=== PATIENT | female | born 1945 | race Two or more races ===

== ENCOUNTER 2018-02-10 08:39 | Outpatient (CLI) | payer OTHER ==
[~2018-02-10 08:39] MED LIST: SYNTHROID50 MCG
== END 2018-02-10 08:44 | disposition home or self-care (01) ==
LOC: SONOGRAMA 08:39 → MAMO-SONO 08:45
DX: R10.11 Right upper quadrant pain (principal)

== ENCOUNTER 2018-09-27 17:11 | Outpatient (CLI) | payer OTHER | END 2018-09-27 17:22 | disposition home or self-care (01) | LOC: RAD 17:11 | DX: J45.998 Other asthma (principal) ==

== ENCOUNTER → 2018-11-26 | Emergency (ER) | payer OTHER ==
[~2018-11-26] VITALS: Ht 152.4 cm; Wt 53.1 kg
== END | disposition left against medical advice (07) ==
LOC: ER 05:21
DX: Z53.20 Procedure and treatment not carried out because of patient's decision for unspecified reasons (principal)

== ENCOUNTER 2019-09-08 09:09 | Emergency (ER) | payer OTHER ==
[~2019-09-08] VITALS: Ht 152.4 cm; Wt 53.1 kg
== END 2019-09-08 13:24 | disposition home or self-care (01) ==
LOC: ER
DX: F06.4 Anxiety disorder due to known physiological condition (principal)

== ENCOUNTER → 2019-10-06 | Emergency (ER) | payer OTHER ==
[~2019-10-06] VITALS: Ht 152.4 cm; Wt 53.1 kg
== END | disposition left against medical advice (07) ==
LOC: ER 06:29
DX: Z53.21 Procedure and treatment not carried out due to patient leaving prior to being seen by health care provider (principal)

== ENCOUNTER 2019-10-22 09:07 | Emergency (ER) | payer OTHER ==
[~2019-10-22] VITALS: Ht 149.9 cm; Wt 52.6 kg
== END 2019-10-22 14:08 | disposition home or self-care (01) ==
LOC: ER 09:07
DX: R42 Dizziness and giddiness (principal)

== ENCOUNTER 2019-10-29 11:19 | Emergency (ER) | payer OTHER ==
[~2019-10-29] VITALS: Ht 149.9 cm; Wt 53.1 kg
== END 2019-10-29 15:44 | disposition home or self-care (01) ==
LOC: ER 11:19
DX: S40.022A Contusion of left upper arm, initial encounter (principal); R42 Dizziness and giddiness; Z03.818 Encounter for observation for suspected exposure to other biological agents ruled out; W01.198A Fall on same level from slipping, tripping and stumbling with subsequent striking against other object, initial encounter; Y93.K1 Activity, walking an animal; Y92.010 Kitchen of single-family (private) house as the place of occurrence of the external cause; Y99.8 Other external cause status

== ENCOUNTER 2019-10-30 09:46 | Outpatient (CLI) | payer OTHER | END 2019-10-30 10:20 | disposition home or self-care (01) | LOC: OFIC 805 09:46 | PROVIDERS: ATTEND Otolaryngology Otology & Neurotology | DX: H92.03 Otalgia, bilateral (principal); M26.603 Bilateral temporomandibular joint disorder, unspecified ==

== ENCOUNTER 2019-11-16 09:40 | Emergency (ER) | payer OTHER ==
[~2019-11-16] VITALS: Ht 152.4 cm; Wt 52.6 kg
[2019-11-16] MEDS ORDERED: CIPRO500 MG PO (12:00)
[2019-11-16] MEDS ORDERED: NASAL MIST126 ML NASAL (12:00)
[2019-11-16] MEDS ORDERED: DRAMAMINE25 MG PO (12:00)
== END 2019-11-16 12:06 | disposition home or self-care (01) ==
LOC: ER 09:40
DX: H92.01 Otalgia, right ear (principal); R42 Dizziness and giddiness

== ENCOUNTER 2019-11-23 09:15 | Emergency (ER) | payer OTHER ==
[~2019-11-23] VITALS: Ht 144.8 cm; Wt 52.6 kg
[~2019-11-23 09:15] MED LIST changes: +CIPRO500 MG PO; +DRAMAMINE25 MG PO; +NASAL MIST126 ML NASAL
== END 2019-11-23 10:37 | disposition home or self-care (01) ==
LOC: ER 09:15
DX: H92.01 Otalgia, right ear (principal)

== ENCOUNTER 2019-12-03 08:45 | Outpatient (CLI) | payer OTHER | END 2019-12-03 08:53 | disposition home or self-care (01) | LOC: TOM 08:45 | PROVIDERS: ATTEND Specialist | DX: G11.1 Early-onset cerebellar ataxia (principal); I63.442 Cerebral infarction due to embolism of left cerebellar artery ==

== ENCOUNTER 2019-12-03 13:47 | Outpatient (CLI) | payer OTHER | END 2019-12-03 16:32 | disposition home or self-care (01) | LOC: OFIC 805 13:47 | PROVIDERS: ATTEND Otolaryngology | DX: M26.69 Other specified disorders of temporomandibular joint (principal); H92.01 Otalgia, right ear ==

== ENCOUNTER 2019-12-10 12:41 | Emergency (ER) | payer OTHER ==
[~2019-12-10] VITALS: Ht 152.4 cm; Wt 53.1 kg
[2019-12-10] MEDS ORDERED: CLONAZEPAM0.5 MG PO (13:26)
[2019-12-10] MEDS ORDERED: VISTARIL25 MG PO (15:08)
== END 2019-12-10 15:27 | disposition home or self-care (01) ==
LOC: ER 12:41
DX: R20.0 Anesthesia of skin (principal); G25.2 Other specified forms of tremor

== ENCOUNTER 2019-12-21 10:19 | Emergency (ER) | payer OTHER ==
[~2019-12-21] VITALS: Ht 152.4 cm; Wt 53.1 kg
[~2019-12-21 10:19] MED LIST changes: +CLONAZEPAM0.5 MG PO; +VISTARIL25 MG PO
[2019-12-21] MEDS ORDERED: NEO-POLYMYXIN-H10 M2 (10:27)
== END 2019-12-21 11:40 | disposition home or self-care (01) ==
LOC: ER 10:19
DX: H92.01 Otalgia, right ear (principal); H66.91 Otitis media, unspecified, right ear

== ENCOUNTER 2019-12-24 11:12 | Outpatient (CLI) | payer OTHER ==
[~2019-12-24 11:12] MED LIST changes: +NEO-POLYMYXIN-H10 M2
== END 2019-12-24 11:18 | disposition home or self-care (01) ==
LOC: MRI 11:12
PROVIDERS: ATTEND General Practice
DX: M54.2 Cervicalgia (principal)
CPT/HCPCS: 72141

== ENCOUNTER 2020-01-20 13:39 | Emergency (ER) | payer OTHER ==
[~2020-01-20] VITALS: Ht 152.4 cm; Wt 53.5 kg
[2020-01-20] MEDS ORDERED: VITACEL TABLET1 EACH PO (14:31)
[2020-01-20] MEDS ORDERED: ZITHROMAX200 MG PO (15:06)
== END 2020-01-20 15:59 | disposition home or self-care (01) ==
LOC: ER 13:39
DX: H60.8X3 Other otitis externa, bilateral (principal)

== ENCOUNTER 2020-01-26 10:57 | Emergency (ER) | payer OTHER ==
[~2020-01-26] VITALS: Ht 149.9 cm; Wt 53.1 kg
[~2020-01-26 10:57] MED LIST changes: +VITACEL TABLET1 EACH PO; +ZITHROMAX200 MG PO
== END 2020-01-26 12:59 | disposition home or self-care (01) ==
LOC: ER 10:57
DX: H92.01 Otalgia, right ear (principal)

== ENCOUNTER 2020-02-06 13:32 | Outpatient (CLI) | payer OTHER | END 2020-02-06 13:47 | disposition home or self-care (01) | LOC: TOM 13:32 | PROVIDERS: ATTEND Otolaryngology | DX: H92.03 Otalgia, bilateral (principal) ==

== ENCOUNTER 2020-03-15 09:49 | Emergency (ER) | payer OTHER ==
[~2020-03-15] VITALS: Ht 152.4 cm; Wt 53.1 kg
[2020-03-15] MEDS ORDERED: ORPHENADRINE C100 MG PO (10:41)
== END 2020-03-15 10:55 | disposition home or self-care (01) ==
LOC: ER 09:49
DX: H92.01 Otalgia, right ear (principal)

== ENCOUNTER 2021-02-27 15:51 | Emergency (ER) | payer OTHER ==
[~2021-02-27] VITALS: Ht 154.9 cm; Wt 49.9 kg
[~2021-02-27 15:51] MED LIST changes: +ORPHENADRINE C100 MG PO
[2021-02-27] MEDS ORDERED: MOTION SICKNESS25 M1 PO (17:13)
[2021-02-27] MEDS ORDERED: CORTISPORIN EAR10 M1 OT (17:13)
== END 2021-02-27 17:32 | disposition home or self-care (01) ==
LOC: ER 15:51
DX: H60.91 Unspecified otitis externa, right ear (principal)

== ENCOUNTER 2021-06-04 15:48 | Emergency (ER) | payer OTHER ==
[~2021-06-04] VITALS: Ht 152.4 cm; Wt 52.2 kg
[~2021-06-04 15:48] MED LIST changes: +CORTISPORIN EAR10 M1 OT; +MOTION SICKNESS25 M1 PO
== END 2021-06-04 18:12 | disposition home or self-care (01) ==
LOC: ER 15:48
DX: H92.09 Otalgia, unspecified ear (principal); H60.91 Unspecified otitis externa, right ear

== ENCOUNTER 2021-11-24 13:19 | Emergency (ER) | payer OTHER ==
[~2021-11-24] VITALS: Ht 152.4 cm; Wt 51.7 kg
== END 2021-11-24 16:47 | disposition home or self-care (01) ==
LOC: ER 13:19
DX: S90.821A Blister (nonthermal), right foot, initial encounter (principal); X58.XXXA Exposure to other specified factors, initial encounter; Y93.9 Activity, unspecified; Y92.9 Unspecified place or not applicable; Y99.9 Unspecified external cause status; L08.9 Local infection of the skin and subcutaneous tissue, unspecified

== ENCOUNTER 2022-01-28 08:47 | Emergency (ER) | payer OTHER ==
[~2022-01-28] VITALS: Ht 152.4 cm; Wt 51.7 kg
== END 2022-01-28 10:38 | disposition home or self-care (01) ==
LOC: ER 08:47
DX: H66.91 Otitis media, unspecified, right ear (principal)

== ENCOUNTER 2022-02-01 08:12 | Outpatient (CLI) | payer OTHER | END 2022-02-01 08:28 | disposition home or self-care (01) | LOC: TOM 08:12 | PROVIDERS: ATTEND Specialist | DX: H70.90 Unspecified mastoiditis, unspecified ear (principal) ==

== ENCOUNTER → 2022-07-06 | Emergency (ER) | payer OTHER ==
[~2022-07-06] VITALS: Ht 152.4 cm; Wt 51.7 kg
== END | disposition home or self-care (01) ==
LOC: ER 09:51
DX: H92.03 Otalgia, bilateral (principal)

== ENCOUNTER 2022-09-08 13:30 | Emergency (ER) | payer OTHER ==
[~2022-09-08] VITALS: Ht 157.5 cm; Wt 51.3 kg
== END 2022-09-08 14:31 | disposition home or self-care (01) ==
LOC: ER 13:30
DX: H60.8X1 Other otitis externa, right ear (principal); E03.9 Hypothyroidism, unspecified; M19.90 Unspecified osteoarthritis, unspecified site

== ENCOUNTER 2022-09-22 16:39 | Emergency (ER) | payer OTHER ==
[~2022-09-22] VITALS: Ht 152.4 cm; Wt 51.7 kg
== END 2022-09-22 18:39 | disposition home or self-care (01) ==
LOC: ER 16:39
DX: H92.01 Otalgia, right ear (principal)

== ENCOUNTER 2022-10-10 15:15 | Outpatient (CLI) | payer OTHER | END 2022-10-10 15:22 | disposition home or self-care (01) | LOC: TOM 15:15 | PROVIDERS: ATTEND Otolaryngology | DX: M26.609 Unspecified temporomandibular joint disorder, unspecified side (principal) ==

== ENCOUNTER → 2023-03-04 | Emergency (ER) | payer OTHER ==
[~2023-03-04] VITALS: Ht 152.4 cm; Wt 52.6 kg
== END | disposition left against medical advice (07) ==
LOC: ER 13:03
DX: Z53.21 Procedure and treatment not carried out due to patient leaving prior to being seen by health care provider (principal)